=== PATIENT | male | born 1950 | race Hispanic/Latino ===

== ENCOUNTER 2017-04-12 06:09 | Day surgery (SDC) | payer MEDICARE ==
[2017-04-12] MEDS ORDERED: DIPRIVAN 10 MG/ML IV ONE ×2 (07:38→08:49)
--- NOTE | 2017-04-12 07:40 | Anesthesia Consultation ---
Anesthesia Consult and Med Hx Date of service: 04/12/17 - Airway Anesthetic Teeth Evaluation: Good ROM Head & Neck: Adequate Mental/Hyoid Distance: Adequate Mallampati Class: Class II Intubation Access Assessment: Probably Good - Pulmonary Exam CTA: Yes - Cardiac Exam Cardiac Exam: RRR - Pre-Operative Health Status ASA Pre-Surgery Classification: ASA3 Proposed Anesthetic Plan: MAC - Pulmonary Hx Smoking: Yes (quit 5 yrs ago) Hx Sleep Apnea: Yes (uses bipap) - Cardiovascular System Hx Hypertension: Yes Hx Heart Attack/AMI: No - Central Nervous System Hx Neuromuscular Disorder: Yes (OA) Hx Seizures: No CVA: No Hx Psychiatric Problems: Yes - Endocrine Hx Renal Disease: No Hx Liver Disease: No Hx Non-Insulin Dependent Diabetes: Yes - Other Systems Hx Obesity: Yes - Additional Comments Anesthesia Medical History Comments: NAC
--- NOTE | 2017-04-12 07:41 | Anesthesia Day of Surgery ---
Anesthesia Day of Surgery - Day of Surgery Patient Examined: Yes Patient H&P Reviewed: Yes Patient is NPO: Yes
[2017-04-12] MEDS ORDERED: NACL 0.9% 1000 ML 1,000 ML IV SCH (08:00)
--- NOTE | 2017-04-12 09:16 | Discharge Summary ---
Providers - Providers Attending physician: KM MARIN Hospitalization Procedures: egd Hospital course: 66 y.o. male underwent an EGD for dyspepsia. He tolerated the procedure well. Disposition: DC-01 TO HOME OR SELFCARE Core Measure Documentation - Palliative Care Palliative Care/ Comfort Measures: Not Applicable - Core Measures Any of the following diagnoses?: none Exam - Physical Exam Narrative exam: no change from prior - Constitutional Vitals: Temp Pulse Resp BP Pulse Ox 98.5 F 79 14 128/67 96 04/12/17 08:51 04/12/17 09:06 04/12/17 09:06 04/12/17 09:06 04/12/17 09:06 Plan Activity: other (no driving for 24hrs)
--- NOTE | 2017-04-12 09:20 | Operative Report ---
Operative Report Operative Report: OPERATIVE REPORT - EGD DATE 04/12/17 SURGERY: Upper endoscopy. SURGEON: Dr. Jose M.D. GUT DROPPER: Luisa Ryder D.O. PRE OP DX: Dyspepsia POST OP DX: small hiatal hernia TYPE OF ANESTHESIA: MAC. ESTIMATED BLOOD LOSS: None. COMPLICATIONS: None. SPECIMENS REMOVED: None. FINDINGS: 1. Small hiatal hernia. 2. Otherwise, normal esophagus, stomach and first portion of duodenum. INDICATIONS:INDICATION FOR PROCEDURE: Patient is a 66-year-old male with a long history of morbid obesity. He also has the complaint of dyspepsia. Upper endoscopy today to evaluate anatomy of the stomach prior to bariatric surgery. PROCEDURE DETAILS: After consent was reviewed, patient was taken back to the operating room where patient was placed in the left lateral decubitus position and a bite block was placed in the mouth. After a time-out was called, MAC anesthesia was initiated. I then passed the endoscope into his oropharynx, into her esophagus, visualized the entire esophagus, which was all within normal limits. I then visualized the stomach and the first portion of the duodenum and there were no abnormalities I could clearly visualize. I then retroflexed the scope in the stomach and visualized the hiatus and I could see a small hiatal hernia. I then desufflated the stomach and removed the endoscope. Patient tolerated procedure well and was transferred to recovery room in good and stable condition.
[2017-04-12 09:23] VITALS: BP 130/68
--- NOTE | 2017-04-12 12:25 | Post Anesthesia Evaluation ---
- Post Anesthesia Evaluation Patient Participated: Yes Airway Patent: Yes Stable Respiratory Function: Yes Nausea/Vomiting: No Temp > 96.8F: Yes Pain Manageable: Yes Adequeate Hydration: Yes Anesthesia Complications: No Block Receding Appropriately: Not Applicable Patient on Ventilator: No
== END 2017-04-12 06:10 | disposition home or self-care (01) ==
LOC: GIO 06:09
PROVIDERS: ATTEND Specialist
PROC: 0DJ08ZZ Inspection of Upper Intestinal Tract, Via Natural or Artificial Opening Endoscopic (ICD-10-PCS; principal; 2017-04-12)
DX: K44.9 Diaphragmatic hernia without obstruction or gangrene (principal); E66.01 Morbid (severe) obesity due to excess calories; I10 Essential (primary) hypertension; F32.9 Major depressive disorder, single episode, unspecified; N52.1 Erectile dysfunction due to diseases classified elsewhere; M19.90 Unspecified osteoarthritis, unspecified site; E11.9 Type 2 diabetes mellitus without complications; Z87.442 Personal history of urinary calculi; Z96.653 Presence of artificial knee joint, bilateral; Z90.49 Acquired absence of other specified parts of digestive tract; Z83.3 Family history of diabetes mellitus; Z82.49 Family history of ischemic heart disease and other diseases of the circulatory system; Z87.891 Personal history of nicotine dependence; Z68.43 Body mass index [BMI] 50.0-59.9, adult
CPT/HCPCS: 43235; 82962; J2704; J7030